=== PATIENT | male | born 1965 | race Caucasian/White ===

== ENCOUNTER 2019-09-30 18:54 | Emergency (ER) | payer MEDICAID ==
[~2019-09-30] VITALS: Ht 170.2 cm; Wt 72.1 kg
[2019-09-30 19:02] VITALS: Ht 170.2 cm; Wt 72.1 kg
[2019-09-30 19:59] LABS: BASOPHIL % 0.4 % (0-2); PLATELET COUNT 198 x10^3mcL (130-400); RED CELL DISTRIBUTION WIDTH 12.1 % (11.5-14.5)
[2019-09-30 20:25] LABS: CALCIUM 8.6 mg/dL (8.5-10.1); CARBON DIOXIDE 32.7 mmol/L (21-32); CHLORIDE SERUM 100 mmol/L (98-107); GFR1 > 60 mL/min; GLUCOSE SERUM 92 mg/dL (74-106); POTASSIUM SERUM 3.5 mmol/L (3.5-5.1); SODIUM SERUM 138 mmol/L (136-145)
[2019-09-30 20:39] LABS: ALBUMIN 4.2 g/dL (3.4-5.0); ALKALINE PHOSPHATASE 108 U/L (46-116); ALT/SGPT 65 U/L (16-63); AST/SGOT 71 U/L (15-37); BILIRUBIN TOTAL 1.8 mg/dL (0.20-1.00); CHOLESTEROL 181 mg/dL (<200); LIPASE 243 IU/L (73-393); MAGNESIUM 2.1 mg/dL (1.8-2.4); TOTAL PROTEIN, SERUM 7.7 g/dL (6.4-8.2)
[2019-09-30 20:43] LABS: HDL CHOLESTEROL 67 mg/dL (40-60)
[2019-09-30 21:59] LABS: UA SPECIFIC GRAVITY 1.025 (1.005-1.035); microscopic required? YES; urine erythrocyte TRACE (NEGATIVE)
[2019-09-30 22:14] LABS: AMPHETAMINE QUAL UR NONE DETECTED (See below)
[2019-09-30 22:57] VITALS: BP 132/87
== END 2019-09-30 22:57 | disposition home or self-care (01) ==
LOC: ED 18:54
PROVIDERS: Emergency Medicine
DX: I10 Essential (primary) hypertension (principal); R51 Headache; E11.9 Type 2 diabetes mellitus without complications; E78.5 Hyperlipidemia, unspecified; Z88.5 Allergy status to narcotic agent
CPT/HCPCS: 82962; J3490; Q0092